=== PATIENT | female | born 1950 | race Caucasian/White ===

== ENCOUNTER → 2021-11-10 | Outpatient (REF) | payer MEDICARE | LOC: M SFHCDERM 17:07 | PROVIDERS: ATTEND Physician Assistant | DX: D22.4 Melanocytic nevi of scalp and neck (principal) ==

== ENCOUNTER → 2022-03-30 | Outpatient (REF) | payer MEDICARE | LOC: M SFHCDERM 14:01 | PROVIDERS: ATTEND Physician Assistant | DX: L81.4 Other melanin hyperpigmentation (principal) ==

== ENCOUNTER → 2022-05-19 | Outpatient (REF) | payer MEDICARE | LOC: M SFHCDERM 14:09 | PROVIDERS: ATTEND Dermatology | DX: D03.4 Melanoma in situ of scalp and neck (principal) ==